=== PATIENT | female | born 1980 | race Caucasian/White ===

== ENCOUNTER 2016-05-19 19:07 | Emergency (ER) | payer OTHER ==
[~2016-05-19 19:07] MED LIST: CLARITIN10 M2 PO; DOMPERIDONE; SPRINTEC1 TAB PO; TYLENOL500 MG PO
[2016-05-19] MEDS ORDERED: CELEXA10 M1 (19:35)
[2016-05-19] MEDS ORDERED: ZOFRAN ODT4 MG PO (20:49)
== END 2016-05-19 20:59 ==
LOC: EDMED 19:07
DX: K29.70 Gastritis, unspecified, without bleeding (principal); R19.7 Diarrhea, unspecified; Z98.890 Other specified postprocedural states; Z90.49 Acquired absence of other specified parts of digestive tract